=== PATIENT | female | born 1950 | race Caucasian/White ===

== ENCOUNTER 2023-02-18 15:59 | Emergency (ER) | payer OTHER ==
[~2023-02-18] VITALS: Ht 152.4 cm; Wt 78.5 kg
[2023-02-18 16:00] VITALS: BP_SYST 160; PULSE 67; RESP 17; TEMP 98; O2SAT 98
[2023-02-18] MEDS ORDERED: KETOROLAC TROMETHAMINE 60 MG/2 ML VIAL IM ONE (16:15)
[2023-02-18] MEDS ORDERED: HYDROcodone/ACETAMIN 10-325 MG TAB PO ONE (16:15)
[2023-02-18 16:41] VITALS: BP_SYST 160; PULSE 65; RESP 23; TEMP 98.2; O2SAT 96
[2023-02-18 17:57] LABS: BILIRUBIN,URINE NEGATIVE (NEGATIVE); BLOOD, URINE 1+ (NEGATIVE); COLOR,URINE YELLOW (YELLOW); GLUCOSE,URINE NEGATIVE (NEGATIVE); KETONES,URINE NEGATIVE (NEGATIVE); LEUKOCYTE ESTERASE ,URINE 3+ (NEGATIVE); NITRITE, URINE POSITIVE (NEGATIVE); PROTEIN URINE NEGATIVE (NEGATIVE); UROBILINOGEN,URINE 0.2 (0.2-1.0)
[2023-02-18 17:59] LABS: CLARITY/URINE HAZY (CLEAR)
[2023-02-18 18:04] LABS: BACTERIA,URINE MODERATE /HPF (None Seen); RBC,URINE 0-3 /HPF (0-3); WBC,URINE 80-100 /HPF (0-3)
[2023-02-18 18:05] LABS: MUCUS,URINE None Seen /LPF (None Seen)
[2023-02-18] MEDS ORDERED: NITR-85 PO (18:22)
[2023-02-18] MEDS ORDERED: IBUP-1969 PO (18:22)
[2023-02-18] MEDS ORDERED: HYDR-3927 PO (18:22)
[2023-02-18] MEDS ORDERED: NITROFURANTOIN MONOHYD/M-CRYST 100 MG CAPSULE (MacroBID) PO ONE (18:44)
== END 2023-02-18 18:37 | disposition home or self-care (01) ==
LOC: SED 15:59
DX: M54.32 Sciatica, left side (principal); N39.0 Urinary tract infection, site not specified; M54.50 Low back pain, unspecified; M79.662 Pain in left lower leg; Z79.899 Other long term (current) drug therapy
CPT/HCPCS: 99285; 93971; 81000; 87086; 72100; 96372; J1885